=== PATIENT | male | born 1995 | race Caucasian/White ===

== ENCOUNTER 2021-09-29 05:12 | Emergency (ER) | payer OTHER, BC ==
[~2021-09-29] VITALS: Ht 185.4 cm; Wt 104.0 kg
[2021-09-29] MEDS ORDERED: SODIUM CHLORIDE 0.9% 1,000 ML IV ONE (08:15)
[2021-09-29] MEDS ORDERED: LORAZEPAM 2MG/ML CPJ IV ONE (08:30)
[2021-09-29 09:08] LABS: BASOPHILS % 0.4 % (0.0-2.0); EOSINOPHILS % 0.4 % (0.0-5.0); HEMATOCRIT. 50.1 % (42.0-52.0); HEMOGLOBIN. 16.7 g/dL (14.0-18.0); LYMPHOCYTES % 20.4 % (20.0-50.0); MEAN CORPUSCULAR HEMOGLOBIN 29.9 pg (28.0-32.0); MEAN CORPUSCULAR VOLUME 89.6 fL (80.0-94.0); MEAN PLATELET VOLUME 8.8 fl (7.4-10.4); MONOCYTES % 5.9 % (2.0-8.0); NEUTROPHILS % 72.9 % (40.0-76.0); PLATELET 289 x1000/uL (130-400); RED BLOOD CELL COUNT 5.59 mill/uL (4.7-6.1); RED CELL DISTRIBUTION WIDTH 13.1 % (11.6-14.6)
[2021-09-29 09:10] LABS: CHLORIDE 108 mEq/L (98-107)
[2021-09-29 09:14] LABS: ETHANOL BLOOD 143 mg/dL
[2021-09-29 09:19] LABS: CREATINE KINASE 805 IU/L (39-308)
[2021-09-29 12:35] VITALS: BP 139/89
== END 2021-09-29 12:37 | disposition home or self-care (01) ==
LOC: ER 05:12
DX: Z04.1 Encounter for examination and observation following transport accident (principal); F10.10 Alcohol abuse, uncomplicated; Y90.6 Blood alcohol level of 120-199 mg/100 ml; I10 Essential (primary) hypertension
CPT/HCPCS: 36415; 70450; 71045; 80053; 80320; 82550; 84484; 85025; 93005; 96374; 99285; J2060; J7030; G0480